=== PATIENT | male | born 1995 | race Asian ===

== ENCOUNTER 2017-01-20 14:07 | Emergency (ER) | payer SELFPAY ==
[~2017-01-20 14:07] MED LIST: IBUP-232 PO; LORTA5 PO; Z.0.NO CURRENT MEDS; ZOFR4TAB3 SL
[2017-01-20 14:09] VITALS: BP 128/82; PULSE 64; RESP 20; TEMP 97.9; O2SAT 100
== END 2017-01-20 15:23 | disposition left against medical advice (07) ==
LOC: NED 14:07
DX: Z53.21 Procedure and treatment not carried out due to patient leaving prior to being seen by health care provider (principal)
CPT/HCPCS: 99281